=== PATIENT | female | born 1990 | race Caucasian/White ===

== ENCOUNTER 2016-07-07 16:09 | Emergency (ER) | payer OTHER ==
[~2016-07-07] VITALS: Ht 149.9 cm; Wt 68.0 kg
[2016-07-07 16:22] VITALS: BP 134/91
[2016-07-07] MEDS ORDERED: LIDOCAINE 1% / SOD BICARB 8.4% 20 ML VIAL. IJ ONE (16:45)
--- NOTE | 2016-07-07 17:10 | PHYS DOC ---
Past Medical History Past Medical History: No Pertinent History Past Surgical History: , Other Additional Past Surgical Histo: wisdom teeth removed Alcohol Use: Rarely Drug Use: None Adult General Chief Complaint Chief Complaint: ABSCESS HPI HPI Patient is a 26 year old female who presents with an abscess on the right buttock for 2 days. Patient denies any fever or drainage from the area. Denies any previous history of abscess. Review of Systems Review of Systems Constitutional: See history of present illness Eyes: Denies change in visual acuity, redness, or eye pain [] HENT: Denies nasal congestion or sore throat [] Musculoskeletal: Denies back pain or joint pain [] Integument: Right buttock abscess Neurologic: Denies headache, focal weakness or sensory changes [] Endocrine: Denies polyuria or polydipsia [] Current Medications Current Medications Current Medications Medications (Trade) Dose Ordered Sig/Evan Start Time Stop Time Status Last Admin Dose Admin Lidocaine/Sodium Bicarbonate (Buffered Lidocaine 1%) 20 ml 1X ONCE 07/07/16 16:45 07/07/16 16:46 DC 07/07/16 16:46 20 ML Allergies Allergies Allergies Coded Allergies Type Severity Reaction Last Updated Verified No Known Drug Allergies 07/07/16 No Physical Exam Physical Exam Constitutional: Well developed, well nourished, no acute distress, non-toxic appearance. [] Skin: Right buttock with a area of induration approximately 3 x 2 cm, there is a surrounding 3 cm of cellulitis to the area. The area is warm and very tender to touch and fluctuant. Back: No tenderness, no CVA tenderness. [] Extremities: No tenderness, no cyanosis, no clubbing, ROM intact, no edema. [] Neurologic: Alert and oriented X 3, normal motor function, normal sensory function, no focal deficits noted. [] Psychologic: Affect normal, judgement normal, mood normal. [] Current Patient Data Vital Signs Vital Signs Date Time Temp Pulse Resp B/P Pulse Ox O2 Delivery O2 Flow Rate FiO2 07/07/16 16:22 98.1 110 20 98 Room Air 98.1 EKG EKG [] Radiology/Procedures Radiology/Procedures Indication: abscess of the right buttock Procedure: The patient was positioned appropriately. Local anesthesia was 1% buffered lidocaine. An incision was then made over the apex of the lesion and large amount of yellow bloody purulent material was expressed. The drainage cavity was irrigated and packed with sterile gauze. The patients tetanus status updated as needed. The patient tolerated the procedure well. Complications: none.[] Course & Med Decision Making Course & Med Decision Making Pertinent Labs and Imaging studies reviewed. (See chart for details) Patient has an abscess on the right buttock that was drained as noted in procedures. Her tetanus is up-to-date. The abscess was packed, she is supposed to come back to the ED in 2 days for packing removal. Discharged in Bactrim. I also recommended she follows up with a general surgeon in 1-2 weeks. Dragon Disclaimer Dragon Disclaimer This electronic medical record was generated, in whole or in part, using a voice recognition dictation system. Departure Departure Impression: Primary Impression: Abscess of buttock, right Disposition: 01 HOME, SELF-CARE Condition: STABLE Referrals: LEXIE ARREGUIN MD see him in 1-2 weeks Patient Instructions: Abscess, Care After Additional Instructions: You have an abscess on the right buttocks which was drained in the emergency room. Follow-up with the ED in 2 days for wound check. Keep the area clean and dry. You can shower, do not soak in the bathtub. Also follow-up with the provided general surgeon in 1-2 weeks. Scripts Hydrocodone/Apap 5-325 (Hudson 5-325 Tablet)1 Each Tablet1 Tab PO Q4-6HRS #20 TAB Prov:DANIEL SERNA APRN 07/07/16 Sulfamethoxazole/Trimethoprim (Bactrim Ds Tablet)1 Each Tablet1 Tab PO BID #20 TAB Prov:DANIEL SERNA APRN 07/07/16 DANIEL SERNA APRN Jul 07, 2016 17:10
[2016-07-07] MEDS ORDERED: SULF1TAB24 PO (17:13)
[2016-07-07] MEDS ORDERED: HYDR-971 PO (17:13)
== END 2016-07-07 17:21 | disposition home or self-care (01) ==
LOC: ER 16:09
DX: L02.31 Cutaneous abscess of buttock (principal)
CPT/HCPCS: 10060; 99283-25

== ENCOUNTER 2016-07-10 15:24 | Emergency (ER) | payer SELFPAY ==
[~2016-07-10] VITALS: Ht 149.9 cm; Wt 68.0 kg
[~2016-07-10 15:24] MED LIST: HYDR-971 PO; SULF1TAB24 PO
[2016-07-10 15:32] VITALS: BP 121/81
--- NOTE | 2016-07-10 16:13 | PHYS DOC ---
Past Medical History Past Medical History: No Pertinent History Past Surgical History: , Other Additional Past Surgical Histo: wisdom teeth removed Alcohol Use: Rarely Drug Use: None Adult General Chief Complaint Chief Complaint: WOUND CHECK HPI HPI Patient is a 26-year-old female who presents for a wound check for an abscess that was drained 3 days ago and packed. Review of Systems Review of Systems Constitutional: Denies fever or chills [] Eyes: Denies change in visual acuity, redness, or eye pain [] Musculoskeletal: Denies back pain or joint pain [] Integument: Wound check for an abscess that was drained 3 days ago Neurologic: Denies headache, focal weakness or sensory changes [] Endocrine: Denies polyuria or polydipsia [] Allergies Allergies Allergies Coded Allergies Type Severity Reaction Last Updated Verified No Known Drug Allergies 07/10/16 No Physical Exam Physical Exam Constitutional: Well developed, well nourished, no acute distress, non-toxic appearance. [] HENT: Normocephalic, atraumatic, bilateral external ears normal, oropharynx moist, no oral exudates, nose normal. [] Skin: Right inner buttock with an open packed abscess. The area of redness that was noted when the abscess was opened up and has cleared up. Back: No tenderness, no CVA tenderness. [] Extremities: No tenderness, no cyanosis, no clubbing, ROM intact, no edema. [] Neurologic: Alert and oriented X 3, normal motor function, normal sensory function, no focal deficits noted. [] Psychologic: Affect normal, judgement normal, mood normal. [] Current Patient Data Vital Signs Vital Signs Date Time Temp Pulse Resp B/P Pulse Ox O2 Delivery O2 Flow Rate FiO2 07/10/16 15:32 98.2 88 18 97 Room Air 98.2 EKG EKG [] Radiology/Procedures Radiology/Procedures [] Course & Med Decision Making Course & Med Decision Making Pertinent Labs and Imaging studies reviewed. (See chart for details) Patient is in the ED for wound check for an abscess that was packed by me 2 days ago. The wound appears to be healing well. I removed the packing. The area was covered with gauze. She was instructed to keep the area clean and dry. She is to follow-up with the provided general surgeon on the PCP in 1-2 weeks. Dragon Disclaimer Dragon Disclaimer This electronic medical record was generated, in whole or in part, using a voice recognition dictation system. Departure Departure Impression: Primary Impression: Visit for wound check Disposition: HOME, SELF-CARE Condition: STABLE Referrals: NO PCP (PCP) LEXIE ARREGUIN MD Follow-up with the provided general surgeon in 1-2 weeks Patient Instructions: Abscess, Care After Additional Instructions: We removed the packing from your abscess. The area appears to be healing well. You can shower. It will continue to drain slowly. Keep it covered if it's draining. Follow-up with the provided general surgeon in the next 1-2 weeks or your primary care doctor. Continue taking the rest of your medications. DANIEL SERNA PROPERTY INSURANCE INSPECTOR Jul 10, 2016 16:13
== END 2016-07-10 16:28 | disposition home or self-care (01) ==
LOC: ER 15:24
DX: Z48.01 Encounter for change or removal of surgical wound dressing (principal); L02.31 Cutaneous abscess of buttock
CPT/HCPCS: 99283

== ENCOUNTER 2016-12-27 13:20 | Emergency (ER) | payer OTHER ==
[~2016-12-27] VITALS: Ht 149.9 cm; Wt 68.0 kg
[2016-12-27 13:33] VITALS: BP 148/89
--- NOTE | 2016-12-27 13:57 | PHYS DOC ---
Past Medical History Past Medical History: No Pertinent History Past Surgical History: , Other Additional Past Surgical Histo: wisdom teeth removed Alcohol Use: Rarely Drug Use: None Adult General Chief Complaint Chief Complaint: ABSCESS HPI HPI Patient is a 26 year old female with history of recurrent cellulitis or presents with cellulitis for right buttocks. Symptoms began 3-4 days ago. Patient has a 3 x 2 cm erythematous mildly indurated cellulitic rash to her right medial buttocks adjacent to gluteal cleft. The rash is nonfluctuant and is not draining. It is appropriate tenderness to palpation. No other symptoms or complaints Review of Systems Review of Systems Review symptoms as per history of present illness. All other review symptoms are negative. Allergies Allergies Allergies Coded Allergies Type Severity Reaction Last Updated Verified No Known Drug Allergies 07/10/16 No Physical Exam Physical Exam Constitutional: Well developed, well nourished, no acute distress, non-toxic appearance. [] HENT: Normocephalic, atraumatic, bilateral external ears normal, oropharynx moist, no oral exudates, nose normal. [] Eyes: PERRLA, EOMI, conjunctiva normal, no discharge. [] Neck: Normal range of motion, no tenderness, supple, no stridor. [] Cardiovascular:Heart rate regular rhythm, no murmur [] Lungs & Thorax: Bilateral breath sounds clear to auscultation [] Abdomen: Bowel sounds normal, soft, no tenderness, no masses, no pulsatile masses. [] Skin: R Buttock, x 2 centimeter indurated cellulitic rash adjacent to gluteal cleft. No fluctuance streaking. Sporadic satellite rash.[] Back: No tenderness, no CVA tenderness. [] Extremities: No tenderness, no cyanosis, no clubbing, ROM intact, no edema. [] Neurologic: Alert and oriented X 3, normal motor function, normal sensory function, no focal deficits noted. [] Psychologic: Affect normal, judgement normal, mood normal. [] Current Patient Data Vital Signs Vital Signs Date Time Temp Pulse Resp B/P (MAP) Pulse Ox O2 Delivery O2 Flow Rate FiO2 12/27/16 13:33 98.0 86 20 99 Room Air 98.0 EKG EKG [] Radiology/Procedures Radiology/Procedures [] Course & Med Decision Making Course & Med Decision Making Pertinent Labs and Imaging studies reviewed. (See chart for details) []Soft tissue infection without evidence of abscess. Topical and oral antibiotics prescribed along with pain control. Recommend close PCP follow-up. Return precautions reviewed. Nathan Disclaimer Nathan Disclaimer This electronic medical record was generated, in whole or in part, using a voice recognition dictation system. Departure Departure Impression: Primary Impression: Cellulitis of buttock, right Disposition: 01 HOME, SELF-CARE Condition: GOOD Patient Instructions: Cellulitis, [id number] Additional Instructions: Please complete full course of antibiotics and take ibuprofen for pain and hydrocodone as needed for additional relief. Apply topical antibiotics to any new rashes. Follow-up with your PCP in 3-5 days for reevaluation. Return the ED if worse. SOM STANTON DO Dec 27, 2016 13:57
== END 2016-12-27 13:52 | disposition home or self-care (01) ==
LOC: ER 13:20
DX: L03.317 Cellulitis of buttock (principal)
CPT/HCPCS: 99281

== ENCOUNTER 2016-12-29 22:16 | Emergency (ER) | payer OTHER ==
[~2016-12-29] VITALS: Ht 147.3 cm; Wt 68.0 kg
[2016-12-29 22:25] VITALS: BP 125/83
--- NOTE | 2016-12-29 22:51 | PHYS DOC ---
Past Medical History Past Medical History: No Pertinent History Past Surgical History: , Other Additional Past Surgical Histo: wisdom teeth removed Alcohol Use: Rarely Drug Use: None Adult General Chief Complaint Chief Complaint: ABSCESS HPI HPI Patient is a 26 year old female presents to the emergency department with complaints of an abscess on her buttocks. Patient states she was evaluated in the emergency department 3 days ago for same complaint. She states she is taking the Bactrim as directed but noted that the area has gotten more swollen and more red. She reports no fever. She does have a history of pilonidal abscess. Review of Systems Review of Systems Constitutional: Denies fever or chills [] Eyes: Denies change in visual acuity, redness, or eye pain [] HENT: Denies nasal congestion or sore throat [] Respiratory: Denies cough or shortness of breath [] Cardiovascular: No additional information not addressed in HPI [] GI: Denies abdominal pain, nausea, vomiting, bloody stools or diarrhea [] : Denies dysuria or hematuria [] Musculoskeletal: Denies back pain or joint pain [] Integument: Abscess Neurologic: Denies headache, focal weakness or sensory changes [] Endocrine: Denies polyuria or polydipsia [] Current Medications Current Medications Current Medications Medications (Trade) Dose Ordered Sig/Evan Start Time Stop Time Status Last Admin Dose Admin Lidocaine HCl (Xylocaine-Mpf 1% Vial) 2 ml 1X ONCE 12/29/16 23:00 12/29/16 23:01 12/29/16 22:42 2 ML Allergies Allergies Allergies Coded Allergies Type Severity Reaction Last Updated Verified No Known Drug Allergies 07/10/16 No Physical Exam Physical Exam Constitutional: Well developed, well nourished, no acute distress, non-toxic appearance. [] HENT: Normocephalic, atraumatic, bilateral external ears normal, oropharynx moist, no oral exudates, nose normal. [] Eyes: PERRLA, EOMI, conjunctiva normal, no discharge. [] Neck: Normal range of motion, no tenderness, supple without lymphadenopathy, no stridor. [] Cardiovascular:Heart rate regular rhythm, no murmur [] Lungs & Thorax: Bilateral breath sounds clear to auscultation [] Abdomen: Bowel sounds normal, soft, no tenderness, no masses, no pulsatile masses. [] Skin: Warm, dry, left buttock, medial with a 3 cm raised fluctuant area surrounded by 3 cm of induration and erythema. Back: No tenderness, no CVA tenderness. [] Extremities: No tenderness, no cyanosis, no clubbing, ROM intact, no edema. [] Neurologic: Alert and oriented X 3, normal motor function, normal sensory function, no focal deficits noted. [] Psychologic: Affect normal, judgement normal, mood normal. [] Current Patient Data Vital Signs Vital Signs Date Time Temp Pulse Resp B/P (MAP) Pulse Ox O2 Delivery O2 Flow Rate FiO2 12/29/16 22:25 98.4 115 18 98 Room Air 98.4 EKG EKG [] Radiology/Procedures Radiology/Procedures Procedure note: Abscess, area of concern, anesthetized with 1% lidocaine, 1 mL. There is cleansed with Betadine normal saline. #11 blade used to incise the abscess. Moderate amount of foul-smelling purulent discharge. Wound was copiously irrigated with normal saline. Wound was dressed with a bulky bandage. Patient tolerated procedure well.[] She was given 1 g Rocephin IM in the emergency department. Course & Med Decision Making Course & Med Decision Making Pertinent Labs and Imaging studies reviewed. (See chart for details) []I spoke with the patient and/or care givers. I've explained the patient's condition, diagnosis and treatment plan based on the information available to me at this time. I've answered the patient's and/or care givers questions and a dressing concerns. The patient and/or care givers have as good an understanding of the patient's diagnosis, condition and treatment plan as can be expected at this time. Vital signs stable. The patient's condition is stable and appropriate for discharge from the emergency department. The patient will pursue further outpatient evaluation with the primary care physician or other designated or consulting physician as outlined in the discharge instructions. The patient and/or care givers are agreeable to this plan of care and follow-up instructions and explained in detail. The patient and /or care givers have received these instructions in written format and have expressed an understanding of the discharge instructions. The patient and/or caregivers are aware that any significant change in condition or worsening of symptoms should prompt immediate return to this closest emergency department or call to 911. Nathan Disclaimer Nathan Disclaimer This electronic medical record was generated, in whole or in part, using a voice recognition dictation system. Departure Departure Impression: Primary Impression: Abscess of left buttock Disposition: HOME, SELF-CARE Condition: STABLE Referrals: NO PCP (PCP) [facility] Patient Instructions: Abscess Additional Instructions: Follow-up with Dr. Martínez as scheduled. Continue your Bactrim and hydrocodone as previously directed. Return to the emergency department his symptoms or concerns worsening of current condition. JAHAIRA HAYWARD HYDRAULIC CHAIR ASSEMBLER Dec 29, 2016 22:51
[2016-12-29] MEDS ORDERED: LIDOCAINE 1% PF 2 ML VIAL. INJ ONE (23:00)
[2016-12-29] MEDS ORDERED: cefTRIAXone IM 1 GM VIAL IM ONE (23:15)
== END 2016-12-29 22:55 | disposition home or self-care (01) ==
LOC: ER 22:16
DX: L02.31 Cutaneous abscess of buttock (principal)
CPT/HCPCS: 10060; 96372; 99283; J0696

== ENCOUNTER 2017-02-26 18:53 | Emergency (ER) | payer SELFPAY ==
[~2017-02-26] VITALS: Ht 149.9 cm; Wt 72.6 kg
[2017-02-26 19:15] VITALS: BP 145/79
[2017-02-26] MEDS ORDERED: diphenhydrAMINE HCL 25 MG CAPSULE PO ONE (19:45)
[2017-02-26] MEDS ORDERED: KETOROLAC 60 MG/2 ML INJ. IM ONE (19:45)
[2017-02-26] MEDS ORDERED: IBUP-1060 PO (20:14)
[2017-02-26] MEDS ORDERED: CLIN300C8 PO (20:14)
[2017-02-26] MEDS ORDERED: HYDR-971 PO (20:14)
--- NOTE | 2017-02-26 20:14 | PHYS DOC ---
Past Medical History Past Medical History: No Pertinent History Past Surgical History: , Other Additional Past Surgical Histo: wisdom teeth removed Alcohol Use: Rarely Drug Use: None Adult General Chief Complaint Chief Complaint: DENTAL PROBLEM HPI HPI Patient is a 27 year old female presents the ED complaining of right lower jaw/ gland swelling 4 hours. Patient states she took a nap and woke up 2 hours later with some hardness underneath her right jaw. Patient has a history of tonsilliths. Describes the pain as sharp. Rates the pain as 8 out of 10. Denies difficulty swallowing, tongue swelling, difficulty breathing, chest pain, shortness of breath, fever, nausea/vomiting, headache, abdominal pain or dizziness. Review of Systems Review of Systems Constitutional: Denies fever or chills [] Eyes: Denies change in visual acuity, redness, or eye pain [] HENT: Denies nasal congestion or sore throat [] Respiratory: Denies cough or shortness of breath [] Cardiovascular: No additional information not addressed in HPI [] GI: Denies abdominal pain, nausea, vomiting, bloody stools or diarrhea [] : Denies dysuria or hematuria [] Musculoskeletal: Denies back pain or joint pain [] Integument: Denies rash or skin lesions [] Neurologic: Denies headache, focal weakness or sensory changes [] Endocrine: Denies polyuria or polydipsia [] All other systems were reviewed and found to be within normal limits, except as documented in this note. Current Medications Current Medications Current Medications Medications (Trade) Dose Ordered Sig/Evan Start Time Stop Time Status Last Admin Dose Admin Diphenhydramine HCl (Benadryl) 25 mg 1X ONCE 02/26/17 19:45 02/26/17 19:46 DC 02/26/17 20:00 25 MG Ketorolac Tromethamine (Toradol Im) 60 mg 1X ONCE 02/26/17 19:45 02/26/17 19:46 DC 02/26/17 20:00 60 MG Allergies Allergies Allergies Coded Allergies Type Severity Reaction Last Updated Verified No Known Drug Allergies 07/10/16 No Physical Exam Physical Exam Constitutional: Well developed, well nourished, no acute distress, non-toxic appearance. [] HENT: Normocephalic, atraumatic, bilateral external ears normal, oropharynx moist, no oral exudates, uvula midline. nose normal. MILD SUBLINGUAL UNILATERAL TENDERNESS. NO OVERLYING SKIN CHANGES. NO PALPABLE STONE IN ORAL MOUTH DUCTS. NO DENTAL TENDERNESS, ABSCESS OR FLUCTUANCE.[] Eyes: PERRLA, EOMI, conjunctiva normal, no discharge. [] Neck: Normal range of motion, no tenderness, supple, no stridor. [] Cardiovascular:Heart rate regular rhythm, no murmur [] Lungs & Thorax: Bilateral breath sounds clear to auscultation [] Skin: Warm, dry, no erythema, no rash. [] Neurologic: Alert and oriented X 3, normal motor function, normal sensory function, no focal deficits noted. [] Psychologic: Affect normal, judgement normal, mood normal. [] Current Patient Data Vital Signs Vital Signs Date Time Temp Pulse Resp B/P (MAP) Pulse Ox O2 Delivery O2 Flow Rate FiO2 02/26/17 19:15 98.3 83 16 99 Room Air 98.3 EKG EKG [] Radiology/Procedures Radiology/Procedures [] Course & Med Decision Making Course & Med Decision Making Pertinent Labs and Imaging studies reviewed. (See chart for details) []No dental pain or tenderness on exam. Mild sublingual gland tenderness without signs of abscess or fluctuance. Will treat with clindamycin, sialagogues , analgesics outpatient. Tolerating by mouth. Laughing and smiling in exam room. Discussed follow-up with PCP tomorrow. Provided contact information/ education. Discussed reasons to return to the ED. Patient understands and agrees with plan. Dragon Disclaimer Dragon Disclaimer This electronic medical record was generated, in whole or in part, using a voice recognition dictation system. Departure Departure Impression: Primary Impression: Sublingual infection Disposition: 01 HOME, SELF-CARE Condition: IMPROVED Referrals: NO PCP (PCP) ONEYDA SAEED DDS Patient Instructions: Parotitis, Sialadenitis, Extended Version Scripts Ibuprofen (IBUPROFEN) 800 Mg Tablet 800 MG PO PRN Q6HRS Y for INFLAMMATION, #20 TAB Prov: ARVIND LE 02/26/17 Hydrocodone/Apap 5-325 (NORCO 5-325 TABLET) 1 Each Tablet 1 TAB PO TID, #8 TAB Prov: ARVIND LE 02/26/17 Clindamycin Hcl (CLINDAMYCIN HCL) 300 Mg Capsule 300 MG PO QID for 10 Days, #40 CAP Prov: ARVIND LE 02/26/17 ARVIND LE Feb 26, 2017 20:14
== END 2017-02-26 20:39 | disposition home or self-care (01) ==
LOC: ER 18:53
DX: K11.20 Sialoadenitis, unspecified (principal); K08.409 Partial loss of teeth, unspecified cause, unspecified class
CPT/HCPCS: 96372; 99283; J1885; Q0163

== ENCOUNTER 2017-02-28 11:06 | Emergency (ER) | payer SELFPAY ==
[~2017-02-28] VITALS: Ht 149.9 cm; Wt 77.1 kg
[~2017-02-28 11:06] MED LIST changes: +CLIN300C8 PO; +IBUP-1060 PO
[2017-02-28] MEDS ORDERED: IV NORMAL SALINE 1000ML BAG 1,000 ML IV SCH (12:39)
[2017-02-28] MEDS ORDERED: ONDANSETRON PF 4 MG/2 ML VIAL. IV ONE (12:45)
[2017-02-28] MEDS ORDERED: fentaNYL PF VIAL 100 MCG/2 ML VIAL IV PRN (12:45)
[2017-02-28] MEDS ORDERED: KETOROLAC 30 MG/ML INJ. IV ONE (12:45)
[2017-02-28 12:51] LABS: BASO # 0.1 x10^3/uL (0.0-0.2); BASO % 1 % (0-3); EOS % 1 % (0-3); HEMOGLOBIN 13.3 g/dL (12.0-15.5); LYMPH # 2.4 x10^3/uL (1.0-4.8); LYMPH % 16 % (24-48); MEAN CORPUSCULAR HEMOGLOBIN 29 pg (25-35); MEAN CORPUSCULAR HGB CONC 33 g/dL (31-37); MEAN CORPUSCULAR VOLUME 88 fL (79-100); MONO % 8 % (0-9); NEUT % 75 % (31-73); PLATELET COUNT 331 x10^3/uL (140-400); RED BLOOD COUNT 4.54 x10^6/uL (3.50-5.40); RED CELL DISTRIBUTION WIDTH 13.2 % (11.5-14.5); WHITE BLOOD COUNT 15.4 x10^3/uL (4.0-11.0)
--- NOTE | 2017-02-28 12:53 | ED.ADGEN ---
Past Medical History Past Medical History: No Pertinent History Past Surgical History: , Other Additional Past Surgical Histo: wisdom teeth removed Additional Information: PACK A DAY Alcohol Use: Rarely Drug Use: None Adult General Chief Complaint Chief Complaint: OTHER COMPLAINTS HPI HPI Patient is a 27 year old woman, with no significant past history, who presents emergency Department with complaint of worsening swelling in the right side of her face, with pain and now extending into the throat and neck. Patient was seen in the emergency department 2 days ago, that time she was diagnosed with a blocked salivary duct, she was initiated on antibiotics, hydrocodone, ibuprofen , and told to suck on hard candies. Patient states she's been following instructions but is had significant worsening of the swelling and pain today. She denies any fevers or chills, nausea or vomiting, states she is having pain with swallowing on the right side, denies any similar lesions previously, no injuries, no nausea or vomiting, no chest pain or shortness of breath. She states she's been compliant with all medications. No recent travel, no neck pain the posterior aspect of her neck, no swelling extremities, no rashes or lesions. No dental trauma or caries. Review of Systems Review of Systems Constitutional: Denies fever or chills. [] Eyes: Denies change in visual acuity. [] HENT: Denies nasal congestion, complaining of pain in the right side of the face with swelling, pain underneath her tongue, extending into the neck and throat. Respiratory: Denies cough or shortness of breath. [] Cardiovascular: Denies chest pain or edema. [] GI: Denies abdominal pain, nausea, vomiting, bloody stools or diarrhea. [] : Denies dysuria. [] Musculoskeletal: Denies back pain or joint pain. [] Integument: Denies rash. [] Neurologic: Denies headache, focal weakness or sensory changes. [] Endocrine: Denies polyuria or polydipsia. [] Lymphatic: Denies swollen glands. [] Psychiatric: Denies depression or anxiety. [] Current Medications Current Medications Current Medications Medications (Trade) Dose Ordered Sig/Evan Start Time Stop Time Status Last Admin Dose Admin Dexamethasone Sodium Phosphate (Decadron) 10 mg 1X ONCE 02/28/17 15:15 02/28/17 15:16 DC 02/28/17 15:19 10 MG Fentanyl Citrate (Fentanyl 2ml Vial) 25 mcg PRN Q15MIN PRN 02/28/17 12:45 03/01/17 12:44 02/28/17 13:10 25 MCG Info (Do NOT chart on this entry -- for MONITORING) 1 each PRN DAILY PRN 02/28/17 13:00 03/02/17 12:59 Iohexol (Omnipaque 300 Mg/ml) 75 ml 1X ONCE 02/28/17 13:00 02/28/17 13:01 DC 02/28/17 13:27 75 ML Ketorolac Tromethamine (Toradol) 10 mg 1X ONCE 02/28/17 12:45 02/28/17 12:46 DC 02/28/17 13:09 10 MG Ondansetron HCl (Zofran) 4 mg 1X ONCE 02/28/17 12:45 02/28/17 12:46 DC 02/28/17 13:08 4 MG Sodium Chloride 1,000 ml @ 1,000 mls/hr Q1H 02/28/17 12:39 02/28/17 13:38 DC 02/28/17 13:07 1,000 MLS/HR Allergies Allergies Allergies Coded Allergies Type Severity Reaction Last Updated Verified No Known Drug Allergies 07/10/16 No Physical Exam Physical Exam Constitutional: Well developed, well nourished, no acute distress, non-toxic appearance. [] HENT: Normocephalic, atraumatic, bilateral external ears normal, oropharynx moist, patient noted to have significant swelling under the tongue on the right side with firmness and tenderness to palpation, there is no significant erythema , no discharge or drainage, patient with mild erythema of the right tonsil with small exudate noted, patient with full ability of the tongue, no lymph that are noted all the patient does have tenderness and firmness extends in the submandibular region down into the lateral aspect of the neck, no other facial swelling or other maladies identified. Eyes: PERRLA, EOMI, conjunctiva normal, no discharge. [] Neck: Normal range of motion, no tenderness, supple, no stridor. [] Cardiovascular:Heart rate regular rhythm, no murmur, S1, S2, rubs or gallops. [] Lungs & Thorax: Bilateral breath sounds clear to auscultation, no wheezing, rhonchi, rales. No chest wall crepitus or tenderness. [] Abdomen: Bowel sounds normal, soft, no tenderness, no masses, no pulsatile masses. [] Skin: Warm, dry, no erythema, no rash. [] Back: No tenderness, no CVA tenderness. [] Extremities: No tenderness, no cyanosis, no clubbing, ROM intact, no edema. Negative Homans sign. [] Neurologic: Alert and oriented X 3, normal motor function, normal sensory function, no focal deficits noted. [] Psychologic: Affect normal, judgement normal, mood normal. [] Current Patient Data Vital Signs Vital Signs Date Time Temp Pulse Resp B/P (MAP) Pulse Ox O2 Delivery O2 Flow Rate FiO2 02/28/17 15:25 87 16 103/60 (74) 100 Room Air 02/28/17 11:40 98.6 98.6 Lab Values Laboratory Tests Test 02/28/17 11:54 02/28/17 12:15 02/28/17 13:13 POC Urine HCG, Qualitative Hcg negative (Negative) White Blood Count 15.4 x10^3/uL (4.0-11.0) H Red Blood Count 4.54 x10^6/uL (3.50-5.40) Hemoglobin 13.3 g/dL (12.0-15.5) Hematocrit 40.0 % (36.0-47.0) Mean Corpuscular Volume 88 fL (79-100) Mean Corpuscular Hemoglobin 29 pg (25-35) Mean Corpuscular Hemoglobin Concent 33 g/dL (31-37) Red Cell Distribution Width 13.2 % (11.5-14.5) Platelet Count 331 x10^3/uL (140-400) Neutrophils (%) (Auto) 75 % (31-73) H Lymphocytes (%) (Auto) 16 % (24-48) L Monocytes (%) (Auto) 8 % (0-9) Eosinophils (%) (Auto) 1 % (0-3) Basophils (%) (Auto) 1 % (0-3) Neutrophils # (Auto) 11.5 x10^3uL (1.8-7.7) H Lymphocytes # (Auto) 2.4 x10^3/uL (1.0-4.8) Monocytes # (Auto) 1.2 x10^3/uL (0.0-1.1) H Eosinophils # (Auto) 0.2 x10^3/uL (0.0-0.7) Basophils # (Auto) 0.1 x10^3/uL (0.0-0.2) Sodium Level 139 mmol/L (136-145) Potassium Level 3.6 mmol/L (3.5-5.1) Chloride Level 105 mmol/L (98-107) Carbon Dioxide Level 26 mmol/L (21-32) Anion Gap 8 (6-14) Blood Urea Nitrogen 7 mg/dL (7-20) Creatinine 0.5 mg/dL (0.6-1.0) L Estimated GFR (Cockcroft-Gault) 148.0 BUN/Creatinine Ratio 14 (6-20) Glucose Level 96 mg/dL (70-99) Calcium Level 8.8 mg/dL (8.5-10.1) Total Bilirubin 0.6 mg/dL (0.2-1.0) Aspartate Amino Transferase (AST) 24 U/L (15-37) Alanine Aminotransferase (ALT) 46 U/L (14-59) Alkaline Phosphatase 79 U/L (46-116) Total Protein 6.9 g/dL (6.4-8.2) Albumin 3.3 g/dL (3.4-5.0) L Albumin/Globulin Ratio 0.9 (1.0-1.7) L Group A Streptococcus Rapid Negative (NEGATIVE) Laboratory Tests 02/28/17 12:15 Laboratory Tests 02/28/17 12:15 EKG EKG Not indicated.[] Radiology/Procedures Radiology/Procedures [][facility] [address] [place] [address] IMAGING REPORT Signed PATIENT: DENILSON DIAMOND ACCOUNT: [id number] : 1990 LOCATION: ER AGE: 27 SEX: F EXAM STATUS: REG ER ORD. PHYSICIAN: FRED FRANCO DO REASON: Salivary duct obstruction w/ facial/neck swelling PROCEDURE: CT SOFT TISSUE NECK WO/W CONT CT of the neck and face with and without contrast, 02/28/2017: History: Right facial swelling Noncontrast scans were obtained through the mouth region. Multidetector CT imaging was then performed through the neck and face following an IV bolus injection of iodinated contrast material. There is a elongated 7 x 2.5 mm radiopacity present in the soft tissues along the floor of the mouth just to the right of midline. The appearance is compatible with a calculus in the right [place]'s duct near its orifice. A tubular lucency extending posteriorly is compatible with a dilated submandibular duct. There is enlargement of the right submandibular gland. There is mild adjacent streaky edema extending into the subcutaneous soft tissues of the right cheek and jaw. There is mild associated effacement of the right side of the airway in the hypopharynx just superior to the level of the larynx, at the level of the hyoid bone. The left submandibular gland and both parotid glands are unremarkable. There are mildly enlarged upper cervical lymph nodes bilaterally measure approximately 11-12 mm in short axis dimensions. The paranasal sinuses are clear. Several tiny nonspecific low density thyroid nodules are noted. IMPRESSION: 1. Obstructing right submandibular duct calculus with associated enlargement of the right submandibular gland and adjacent nonspecific edema. A component of cellulitis cannot excluded. 2. Mild associated effacement of the right side of the hypopharyngeal airway. 3. Mild cervical adenopathy. PQRS Compliance Statement: One or more of the following individualized dose reduction techniques were utilized for this examination: 1. Automated exposure control 2. Adjustment of the mA and/or kV according to patient size 3. Use of iterative reconstruction technique DICTATED and SIGNED BY: JOSEPHINE QUINN MD DATE: 02/28/17 3730 CC: FRED FRANCO DO; NO PCP ~ Course & Med Decision Making Course & Med Decision Making Pertinent Labs and Imaging studies reviewed. (See chart for details) Patient with mild erythema of the posterior pharynx, with significant swelling underneath the tongue extending into the lower mandible, is consistent with a salivary duct obstruction, however due to the worsening of symptoms and the significant spread, after discussion at bedside patient is agreeable with receiving imaging of the neck and jaw to further elucidate her symptoms. Patient states her pain is about 8 of 10 currently, will administer additional analgesia, and antiemetics, along with IV fluids patient has no allergies. Laboratory studies also to be obtained including a strep swab. Laboratory studies reveal a leukocytosis of 15.4 without bandemia or shift, otherwise unremarkable including a negative strep swab. CT findings reveal evidence of the ciliary obstruction with surrounding edema, I did discuss findings as above with Dr. Marmolejo of ENT, she requests the patient be discharged from the emergency department, and sent directly to her office where she will remove the obstruction. Patient has been taking her clindamycin without issue, and did take it this morning, patient additionally was given 10 of Decadron to in the emergency department to assist with swelling, patient tolerating by mouth without issue, as stated has no evidence of any airway concerns, and status signs remained stable in the ED. This was discussed with the patient, patient was agreeable this plan, she was discharged from the ED and given information for Dr. Marmolejo's office, and instructed to proceed there immediately for intervention, to return to the ED at any time if any concerning symptoms or new symptoms develop. Dragon Disclaimer Dragon Disclaimer This electronic medical record was generated, in whole or in part, using a voice recognition dictation system. Departure Impression: Primary Impression: Salivary duct obstruction Disposition: 01 HOME, SELF-CARE Condition: STABLE FRED FRANCO DO Feb 28, 2017 12:53
[2017-02-28] MEDS ORDERED: IOHEXOL 300 MG/ML 100ML VIAL. IV ONE (13:00)
[2017-02-28] MEDS ORDERED: CONTRAST GIVEN MC PRN (13:00)
[2017-02-28 13:07] LABS: CALCIUM 8.8 mg/dL (8.5-10.1); CREATININE 0.5 mg/dL (0.6-1.0); POTASSIUM 3.6 mmol/L (3.5-5.1)
[2017-02-28 13:13] LABS: ALBUMIN 3.3 g/dL (3.4-5.0); ALBUMIN/GLOBULIN RATIO 0.9 (1.0-1.7); TOTAL BILIRUBIN 0.6 mg/dL (0.2-1.0); TOTAL PROTEIN 6.9 g/dL (6.4-8.2)
[2017-02-28 14:06] LABS: NEGATIVE OBC STREP NEG; POSITIVE OBC STREP POS
[2017-02-28] MEDS ORDERED: DEXAMETHASONE SOD PHOS 20 MG/5 ML VIAL. PO ONE (15:15)
[2017-02-28 15:25] VITALS: BP 103/60
--- NOTE | 2017-02-28 15:47 | RAD ---
CT of the neck and face with and without contrast, 02/28/2017: History: Right facial swelling Noncontrast scans were obtained through the mouth region. Multidetector CT imaging was then performed through the neck and face following an IV bolus injection of iodinated contrast material. There is a elongated 7 x 2.5 mm radiopacity present in the soft tissues along the floor of the mouth just to the right of midline. The appearance is compatible with a calculus in the right [place]'s duct near its orifice. A tubular lucency extending posteriorly is compatible with a dilated submandibular duct. There is enlargement of the right submandibular gland. There is mild adjacent streaky edema extending into the subcutaneous soft tissues of the right cheek and jaw. There is mild associated effacement of the right side of the airway in the hypopharynx just superior to the level of the larynx, at the level of the hyoid bone. The left submandibular gland and both parotid glands are unremarkable. There are mildly enlarged upper cervical lymph nodes bilaterally measure approximately 11-12 mm in short axis dimensions. The paranasal sinuses are clear. Several tiny nonspecific low density thyroid nodules are noted. IMPRESSION: 1. Obstructing right submandibular duct calculus with associated enlargement of the right submandibular gland and adjacent nonspecific edema. A component of cellulitis cannot excluded. 2. Mild associated effacement of the right side of the hypopharyngeal airway. 3. Mild cervical adenopathy. PQRS Compliance Statement: One or more of the following individualized dose reduction techniques were utilized for this examination: 1. Automated exposure control 2. Adjustment of the mA and/or kV according to patient size 3. Use of iterative reconstruction technique
== END 2017-02-28 15:26 | disposition home or self-care (01) ==
LOC: ER 11:06
DX: K11.8 Other diseases of salivary glands (principal); F17.200 Nicotine dependence, unspecified, uncomplicated; D72.829 Elevated white blood cell count, unspecified
CPT/HCPCS: 36415; 70492; 80053; 81025; 85025; 87070; 87880; 96361; 96374; 96375; 99285; J1100; J1885; J2405; J3010; J7030; Q9967

== ENCOUNTER 2017-05-04 14:29 | Emergency (ER) | payer SELFPAY ==
[2017-05-05 09:24] LABS: NEGATIVE OBC STREP NEG; POSITIVE OBC STREP POS
== END 2017-05-04 15:18 | disposition home or self-care (01) ==
LOC: ER 14:29
DX: J02.9 Acute pharyngitis, unspecified (principal)
CPT/HCPCS: 87070; 87880; 99283